=== PATIENT | male | born 1970 | race Caucasian/White ===

== ENCOUNTER → 2020-05-04 | Outpatient (CLI) | payer OTHER ==
--- NOTE | 2020-05-04 10:19 | Diagnostic Imaging Report ---
INDICATION: Left wrist pain EXAMINATION: Left wrist, 3 views. FINDINGS: The radiocarpal joint is in good alignment. The articulating surfaces are smooth. The carpal bones show no evidence of subluxation. No fractures or osteonecrosis is demonstrated. There is no soft tissue calcification. IMPRESSION: Normal left wrist. Dictated by: Dictated on workstation # [id number]
--- NOTE | 2020-05-04 11:06 | Diagnostic Imaging Report ---
INDICATION: Wrist pain. COMPARISON: None. FINDINGS: Frontal radiographic views of the left wrist with ulnar and radial deviation were obtained and show no fractures, dislocations, or other acute bony abnormalities. Joint spaces are well maintained throughout. The soft tissues appear unremarkable. No radiopaque foreign bodies are identified. IMPRESSION: Unremarkable radiographic exam of the left wrist. Dictated by: Dictated on workstation # [id number]
== END ==
LOC: RAD FS 08:37
PROVIDERS: ATTEND Nurse Practitioner
DX: M19.032 Primary osteoarthritis, left wrist (principal)
CPT/HCPCS: 73100; 73110